=== PATIENT | female | born 1960 | race Caucasian/White ===

== ENCOUNTER 2020-12-24 12:43 | Outpatient (CLI) | payer OTHER, SELFPAY | END 2020-12-24 12:44 | disposition home or self-care (01) | LOC: ANHAUDIO 12:45 | DX: H90.3 Sensorineural hearing loss, bilateral (principal) | CPT/HCPCS: 92557; 92567 ==

== ENCOUNTER 2021-01-14 13:53 | Outpatient (RCR) | payer OTHER, SELFPAY | END 2021-01-14 23:59 | disposition home or self-care (01) | LOC: ANHAUDIO 13:53 | DX: Z46.1 Encounter for fitting and adjustment of hearing aid (principal) | CPT/HCPCS: V5160; V5261 ==